=== PATIENT | male | born 1990 | race Caucasian/White ===

== ENCOUNTER 2018-03-04 23:00 | Emergency (ER) | payer BC, SELFPAY ==
[2018-03-04 23:03] VITALS: BP 135/84; PULSE 70; RESP 16; TEMP 37; O2SAT 98
[2018-03-04 23:18] VITALS: RESP 16
--- NOTE | 2018-03-04 23:38 | W.ED.GENAD ---
Discharge Plan Disposition Patient Disposition: HOME Condition: Good Discharge Details Chief Complaint: Vascular Clinical Impression: Cellulitis of left lower extremity ED Provider: Sammy Anguiano Home Meds and New Rx's Prescriptions: New cephalexin [Keflex] 500 mg capsule 500 mg PO TID Qty: 20 RF: 0 No Action No Known Home Meds RF: 0 Discharge Instructions Instructions: Cephalexin (By mouth), Cellulitis (ED) Additional Instructions: Take all of your antibiotic. Use Motrin or Tylenol for pain. Return to ED for worsening pain, redness, fever. Follow-up with primary care next week if not better. We will have care management work with you in securing primary care. Referrals: Care Management [Provider Group] Medical Decision Making MDM Narrative Medical decision making narrative: Patient with tender, mildly red, warm area left lateral calf consistent with a cellulitis. No fluctuance or mass felt. Does not really have tenderness elsewhere still complains of some mild discomfort with squeezing of the calf. I doubt this is DVT. He has no risk factors. I will get a d-dimer and if negative treat with Keflex for presumed cellulitis. D-dimer is negative. Patient given his first dose of Keflex here. Will go home on Keflex 3 times daily for 7 days. Return to ED if worse. Follow-up with primary care if not better. Put on care management list for primary care referral. HPI - General Adult General Mode of arrival: ambulatory. Date/Time Provider Initiated Documentation: 03/04/18 23:38. Limitations to Documentation: no limitations. Information obtained by: patient. HPI Narrative: Patient presents to the ED with left lateral calf pain. States he noticed it yesterday. It has got worse over the 24 hours. Denies any trauma. Does not really affect his ability to walk. Denies any chest pain or shortness of breath. Denies any fevers or chills. He is otherwise healthy. Related Data Home Medications Medication Instructions Recorded Confirmed Unknown [No Known Home Meds] 03/04/18 03/04/18 Previous Rx's Medication Instructions Recorded cephalexin [Keflex] 500 mg PO TID #20 cap 03/05/18 Allergies Allergy/AdvReac Type Severity Reaction Status Date / Time No Known Allergies Allergy Unverified 03/04/18 23:09 General Stated Complaint: Vascular YONATAN: 3 Review of Systems Constitutional Denies chills, Denies fever(s) and Denies malaise Cardiovascular Denies chest pain, Denies edema, Denies lightheadedness, Denies palpitations and Denies dyspnea Respiratory Denies cough and Denies dyspnea Musculoskeletal Denies abnormal gait, Denies myalgias, Denies arthralgias, Denies joint swelling, Denies numbness and Reports other (left lateral calf pain) Integumentary/Breasts Denies lesions, Reports erythema and Denies rash Neurologic Denies abnormal gait and Denies numbness Endocrine Denies palpitations [facility] Social History Smoking/Tobacco Use Status: Never Exam Const General: cooperative, comfortable, no acute distress and well developed Nutritional Appearance: well nourished Orientation: alert and oriented x3 HENMT Head: normocephalic and atraumatic Skin General skin exam: erythema (mild on left lateral calf area with warmth) Rashes: no rashes Neuro General: alert, oriented x3, gait normal, moves all extremities, no focal motor deficits and CN's II-XI intact bilaterally Extrem General: full ROM, normal gait, calf tenderness (very mild) on the left and other (tenderness left lateral calf in area of erythema/warmth) Course Vital Signs Temperature 98.6 F 03/04/18 23:03 Pulse 70 03/04/18 23:03 Respiratory Rate 16 03/04/18 23:03 Blood Pressure 135/84 03/04/18 23:03 Pulse Oximetry 98 03/04/18 23:03 Temperature 98.6 F 03/04/18 23:03 Pulse 70 03/04/18 23:03 Respiratory Rate 16 03/04/18 23:18 Blood Pressure 135/84 03/04/18 23:03 Pulse Oximetry 98 03/04/18 23:03
[2018-03-05 00:34] LABS: D-Dimer 162 ng/mlFEU (<500)
[2018-03-05 00:42] VITALS: BP 134/71; PULSE 67; RESP 14; TEMP 37; O2SAT 98
[2018-03-05 00:45] VITALS: BP 134/71; PULSE 67; RESP 14; TEMP 37; O2SAT 98
[2018-03-05] MEDS: Cephalexin 500 MG CAP PO (00:52)
--- NOTE | 2018-03-05 00:52 | ED.GENADUL_ITS ---
Discharge Plan Disposition Patient Disposition: HOME Condition: Good Discharge Details Chief Complaint: Vascular Clinical Impression: Cellulitis of left lower extremity ED Provider: Sammy Anguiano Home Meds and New Rx's Prescriptions: New cephalexin [Keflex] 500 mg capsule 500 mg PO TID Qty: 20 RF: 0 No Action No Known Home Meds RF: 0 Discharge Instructions Instructions: Cephalexin (By mouth), Cellulitis (ED) Additional Instructions: Take all of your antibiotic. Use Motrin or Tylenol for pain. Return to ED for worsening pain, redness, fever. Follow-up with primary care next week if not better. We will have care management work with you in securing primary care. Referrals: Care Management [Provider Group] Medical Decision Making MDM Narrative Medical decision making narrative: Patient with tender, mildly red, warm area left lateral calf consistent with a cellulitis. No fluctuance or mass felt. Does not really have tenderness elsewhere still complains of some mild discomfort with squeezing of the calf. I doubt this is DVT. He has no risk factors. I will get a d-dimer and if negative treat with Keflex for presumed cellulitis. D-dimer is negative. Patient given his first dose of Keflex here. Will go home on Keflex 3 times daily for 7 days. Return to ED if worse. Follow-up with primary care if not better. Put on care management list for primary care referral. HPI - General Adult General Mode of arrival: ambulatory . Date/Time Provider Initiated Documentation: 03/04/18 23:38 . Limitations to Documentation: no limitations . Information obtained by: patient . HPI Narrative: Patient presents to the ED with left lateral calf pain. States he noticed it yesterday. It has got worse over the 24 hours. Denies any trauma. Does not really affect his ability to walk. Denies any chest pain or shortness of breath. Denies any fevers or chills. He is otherwise healthy. Related Data Home Medications Medication Instructions Recorded Confirmed Unknown [No Known Home Meds] 03/04/18 03/04/18 Previous Rx's Medication Instructions Recorded cephalexin [Keflex] 500 mg PO TID #20 cap 03/05/18 Allergies Allergy/AdvReac Type Severity Reaction Status Date / Time No Known Allergies Allergy Unverified 03/04/18 23:09 General Stated Complaint: Vascular YONATAN: 3 Review of Systems Constitutional Denies chills, Denies fever(s) and Denies malaise Cardiovascular Denies chest pain, Denies edema, Denies lightheadedness, Denies palpitations and Denies dyspnea Respiratory Denies cough and Denies dyspnea Musculoskeletal Denies abnormal gait, Denies myalgias, Denies arthralgias, Denies joint swelling , Denies numbness and Reports other (left lateral calf pain) Integumentary/Breasts Denies lesions, Reports erythema and Denies rash Neurologic Denies abnormal gait and Denies numbness Endocrine Denies palpitations [facility] [place] Social History Smoking/Tobacco Use Status: Never Exam Const General: cooperative, comfortable, no acute distress and well developed Nutritional Appearance: well nourished Orientation: alert and oriented x3 HENMT Head: normocephalic and atraumatic Skin General skin exam: erythema (mild on left lateral calf area with warmth) Rashes: no rashes Neuro General: alert, oriented x3, gait normal, moves all extremities, no focal motor deficits and CN's II-XI intact bilaterally Extrem General: full ROM, normal gait, calf tenderness (very mild) on the left and other (tenderness left lateral calf in area of erythema/warmth) Course Vital Signs Temperature 98.6 F 03/04/18 23:03 Pulse 70 03/04/18 23:03 Respiratory Rate 16 03/04/18 23:03 Blood Pressure 135/84 03/04/18 23:03 Pulse Oximetry 98 03/04/18 23:03 Temperature 98.6 F 03/04/18 23:03 Pulse 70 03/04/18 23:03 Respiratory Rate 16 03/04/18 23:18 Blood Pressure 135/84 03/04/18 23:03 Pulse Oximetry 98 03/04/18 23:03
--- NOTE | 2018-03-15 10:50 | CMPROGNOTE_ITS ---
Care Management Progress Note 03/15/18-Pt seen for cellulitis in lower extremity by Dr. Candy Anguiano on 03/04/18. 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
== END 2018-03-05 01:04 | disposition home or self-care (01) ==
PROVIDERS: Emergency Provider Emergency Medicine; PCP Nurse Practitioner
DX: L03.116 Cellulitis of left lower limb (principal)
CPT/HCPCS: 99283; 85379

== ENCOUNTER 2020-04-17 22:36 | Emergency (ER) | payer OTHER, BC, SELFPAY ==
[2020-04-17 22:38] VITALS: BP 142/94; PULSE 88; RESP 16; TEMP 36.5; O2SAT 97
[2020-04-17 22:46] VITALS: RESP 18
--- NOTE | 2020-04-17 22:48 | ED.GENADUL_ITS ---
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 Some blood got on the officer's right hand which has no lacerations or skin breakdowns, he cleaned it thoroughly prior to arrival with soap and water. No blood got in the eye and he had a mask over his mouth. Discussed with patient no risk for transmission of HIV or hepatitis through intact skin. HE will f/u with pcp as needed Differential Diagnosis Differential Diagnosis: blood exposure HPI General Mode of arrival: ambulatory . Date/Time Provider Initiated Documentation: 04/17/20 22:43 . Limitations to Documentation: no limitations . Information obtained by: patient . History of Present Illness 29 year old M presents to the emergency department with the chief complaint of blood on right hand, No relieving factors improve symptom(s), No exacerbating factors reported . Patient did receive the following treatments prior to arrival, none Related Data Home Medications Medication Instructions Recorded Confirmed cholecalciferol (vitamin D3) 2,000 unit PO DAILY 04/17/20 04/17/20 [Vitamin D3] multivitamin 1 cap PO DAILY 04/17/20 04/17/20 Allergies Allergy/AdvReac Type Severity Reaction Status Date / Time No Known Allergies Allergy Unverified 04/17/20 22:49 General Stated Complaint: GenMedical YONATAN: 4 Review of Systems All systems reviewed & are unremarkable except as noted in HPI and below Constitutional Constitutional: Denies chills and Denies fever(s) Cardiovascular Cardiovascular: Denies chest pain and Denies dyspnea Respiratory Respiratory: Denies cough and Denies dyspnea Gastrointestinal Gastrointestinal: Denies abdominal pain, Denies nausea and Denies vomiting Integumentary/Breasts Skin/Breast: Denies rash [facility] Social History Smoking/Tobacco Use Status: Never Alcohol Intake: current Alcohol Intake frequency: a few times a month Alcohol type: beer Drug use: Never Substance use type: does not use Do you feel safe at home: Yes Do you feel safe in your relationship?: Yes Exam Const General: no acute distress Orientation: alert HENOK Head: normal to inspection Ears: external ears normal General nose exam: external nose normal Mouth: moist mucous membranes Eyes General: appearance normal, both eyes and all related structures Neck Neck: normal visual inspection Resp Effort & Inspection: normal respiratory effort and able to speak in complete sentences Cardio Rate: regular rate Skin General skin exam: no rashes or lesions noted Neuro General: patient alert and patient oriented x3 Extrem General: normal to inspection Psych Mental Status: mental status grossly normal Course Vital Signs Vital signs: Vital Signs Temperature 36.5 C 04/17/20 22:38 Pulse 88 04/17/20 22:38 Respiratory Rate 16 04/17/20 22:38 Blood Pressure 142/94 H 04/17/20 22:38 Pulse Oximetry 97 04/17/20 22:38 Temperature 36.5 C 04/17/20 22:38 Temperature Source Skin 04/17/20 22:38 Pulse 88 04/17/20 22:38 Respiratory Rate 18 04/17/20 22:46 Respiratory Effort Non-Labored 04/17/20 22:46 Respiratory Depth Normal 04/17/20 22:46 Respiratory Pattern Normal 04/17/20 22:46 Blood Pressure 142/94 H 04/17/20 22:38 Blood Pressure Position Sitting 04/17/20 22:38 Pulse Oximetry 97 04/17/20 22:38 Oxygen Delivery Method Room Air 04/17/20 22:38 Oxygen Flow Rate 0 04/17/20 22:38 Pain Level 0 04/17/20 22:38
[2020-04-17 22:52] VITALS: BP 142/94; PULSE 88; RESP 18; TEMP 36.5; O2SAT 97
== END 2020-04-17 22:51 | disposition home or self-care (01) ==
PROVIDERS: Emergency Provider Emergency Medicine; PCP Nurse Practitioner
DX: Z04.2 Encounter for examination and observation following work accident (principal); Z77.21 Contact with and (suspected) exposure to potentially hazardous body fluids; Y92.810 Car as the place of occurrence of the external cause
CPT/HCPCS: 99281; 99283